=== PATIENT | female | born 1950 | race American Indian/Alaskan Native ===

== ENCOUNTER 2021-02-03 08:00 | Outpatient (CLI) | payer OTHER | END 2021-02-03 08:30 | disposition home or self-care (01) | LOC: PPH VACUNA 08:00 | PROVIDERS: ATTEND Emergency Medicine Pediatric Emergency Medicine | DX: Z23 Encounter for immunization (principal) ==

== ENCOUNTER 2021-02-20 08:00 | Outpatient (CLI) | payer OTHER | END 2021-02-20 08:30 | disposition home or self-care (01) | LOC: PPH VACUNA 08:00 | PROVIDERS: ATTEND Emergency Medicine Pediatric Emergency Medicine | DX: Z23 Encounter for immunization (principal) ==

== ENCOUNTER 2021-08-21 08:00 | Outpatient (CLI) | payer OTHER | END 2021-08-21 08:30 | disposition home or self-care (01) | LOC: PPH VACUNA 08:00 | PROVIDERS: ATTEND Emergency Medicine Pediatric Emergency Medicine | DX: Z23 Encounter for immunization (principal) ==

== ENCOUNTER 2022-02-16 05:23 | Inpatient (IN) | payer OTHER ==
[~2022-02-16] VITALS: Ht 162.6 cm; Wt 68.0 kg
[2022-02-16] MEDS ORDERED: IRBESARTAN-HCT1 EAC1 (05:37)
[2022-02-16] MEDS ORDERED: ROSUVASTATIN CA10 MG (05:37)
[2022-02-16] MEDS ORDERED: DIAZEPAM10 MG (05:38)
[2022-02-16] MEDS ORDERED: PANTOPRAZOLE SO40 MG (05:38)
[2022-02-16] MEDS ORDERED: NABUMETONE750 MG (05:38)
--- NOTE | 2022-02-16 05:41 | NUR ---
PACIENTE QUE LLEGA AMBULANDO EN COMPANIA DE FAMILIAR REFIERE DOLOR ABDOMINAL. REFIERE QUE COMENZO LA MOLESTIA HACE UNOS CHEN Y AUMENTO HOY. PTE REFIERE TENER HISTORIAL DE DIVERTICULOS.
--- NOTE | 2022-02-16 06:15 | NUR ---
SE ORIENTA PTE SOBRE TX MEDICO EL CUAL REFIERE ENTENDER,SE LE EXTRAEN MUESTRAS BAJO MEDIDAS ASEPTICAS,SE CANALIZA Y SE ADMINISTRA MEDICAMENTO MARY ORDEN MEDICA,SE ENTREGA CONTRASTE PARA CT EL CUAL SE NOTIFICA.
--- NOTE | 2022-02-16 07:08 | NUR ---
PTE ALERTA,ESTABLE Y ORIENTADA.SE EDUCA SOBRE EL TRATAMIENTO QUE RECIBIRA EN EL HOSPITAL Y ESTA REFIER ENTENDER.SE MANTIENE EN LA ESPERA DE QUE SE TOME EL CONTRASTE.
--- NOTE | 2022-02-16 08:55 | NUR ---
SE REPIRTE MUESTRA DE CMP. LUIS MIGUEL [facility] DE [facility] REFIRIO MUESTRA HEMOLIZADA.
== END 2022-02-23 17:57 | disposition home or self-care (01) | DRG 392 ==
LOC: ER 05:23 → MEDI 14:48
PROVIDERS: ADMIT Specialist; ATTEND Specialist
PROC: BW2110Z Computerized Tomography (CT Scan) of Abdomen and Pelvis using Low Osmolar Contrast, Unenhanced and Enhanced (ICD-10-PCS; principal; 2022-02-16)
DX: K57.30 Diverticulosis of large intestine without perforation or abscess without bleeding (principal); E87.6 Hypokalemia; E86.0 Dehydration; I10 Essential (primary) hypertension; E78.5 Hyperlipidemia, unspecified; K21.9 Gastro-esophageal reflux disease without esophagitis